=== PATIENT | male | born 1950 | race Caucasian/White ===

== ENCOUNTER → 2017-06-09 | Day surgery (SDC) | payer OTHER ==
[~2017-06-09] MED LIST: ACETAMINOPHEN 325 MG TAB PO ONE; DEXAMETHASONE 4 MG/ML VIAL IVP ONE; FAMOTIDINE 20 MG TAB PO ONE; LIDOCAINE 1% 2 ML INJ ID PRN; LR 1,000 ML IV ONE; ROPIVACAINE 0.2% 80 MG, EPINEPHrine 0.2 MG, KETOROLAC TROMETHAMINE 30 MG in BAG 0 ML IU ONE; TRANEXAMIC ACID 3,000 MG in NS 50 ML IRR ONE; TRANEXAMIC ACID 3,000 MG/50 ML BAG IRR ONE; VANCOMYCIN 1 GM VIAL ONE; ceFAZolin 2 GM/DEXTROSE 100 ML IV ONE
[2017-06-09 09:18] LABS: INR 1.27 (0.83-1.16); PROTIME(PATIENT) 15.9 SEC (12.0-15.0)
--- NOTE | 2017-06-09 09:59 | PDHPUP ---
History & Physical Update H&P update statement: This history and physical update is based on an assessment of the patient which was completed after admission or registration (within 24 hours), but prior to the surgery/procedure. H&P changes: Pt took ASA and Lasix today. INR is 1.27. will cancel for today and reschedule
== END | disposition home or self-care (01) ==
LOC: F3N 07:57 → FSGY 07:57 → UNDOADMIN 07:57 → EDSTATUS 11:15
PROVIDERS: ATTEND Orthopaedic Surgery
DX: M17.11 Unilateral primary osteoarthritis, right knee (principal); Z53.09 Procedure and treatment not carried out because of other contraindication; E11.9 Type 2 diabetes mellitus without complications; I25.2 Old myocardial infarction; G47.33 Obstructive sleep apnea (adult) (pediatric); E78.00 Pure hypercholesterolemia, unspecified; Z68.35 Body mass index [BMI] 35.0-35.9, adult; E66.9 Obesity, unspecified; Z79.01 Long term (current) use of anticoagulants; Z95.1 Presence of aortocoronary bypass graft
CPT/HCPCS: J0171; J1885; J2795; J3370

== ENCOUNTER 2017-08-04 09:49 | Inpatient (IN) | payer OTHER ==
[~2017-08-04 09:49] MED LIST changes: -ACETAMINOPHEN 325 MG TAB PO ONE; -LIDOCAINE 1% 2 ML INJ ID PRN; -LR 1,000 ML IV ONE; -TRANEXAMIC ACID 3,000 MG/50 ML BAG IRR ONE; -VANCOMYCIN 1 GM VIAL ONE; -ceFAZolin 2 GM/DEXTROSE 100 ML IV ONE; +ceFAZolin 2 GM/SWFI 2 GM/20 ML SYR IVP ONE
[2017-08-04] MEDS ORDERED: TRANEXAMIC ACID 3,000 MG/50 ML BAG IRR ONE (11:54)
[2017-08-04] MEDS ORDERED: VANCOMYCIN 1 GM VIAL ONE (11:54)
[2017-08-04] MEDS ORDERED: LIDOCAINE 1% 2 ML INJ ID PRN (12:15)
[2017-08-04] MEDS ORDERED: LR 1,000 ML IV ONE (12:15)
[2017-08-04] MEDS ORDERED: FAMOTIDINE 20 MG TAB ONE (13:02)
[2017-08-04] MEDS ORDERED: DEXAMETHASONE 4 MG/ML VIAL ONE (13:04)
[2017-08-04] MEDS ORDERED: ceFAZolin 2 GM/SWFI 20 ML SYR IVP ONE (13:05)
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
[2017-08-04 13:43] LABS: ANION GAP 14 mEq/L (8-16); CALCIUM 9.3 mg/dL (8.5-10.4); CARBON DIOXIDE 24 mEq/l (22-31); CHLORIDE 104 mEq/L (97-110); CREATININE 1.4 mg/dL (0.7-1.3); GLOMERULAR FILTRATION RATE 51; GLUCOSE 139 mg/dL (70-100); POTASSIUM 3.9 mEq/L (3.5-5.2); SODIUM 142 mEq/L (134-144)
--- NOTE | 2017-08-04 13:48 | PDHPUP ---
History & Physical Update H&P update statement: This history and physical update is based on an assessment of the patient which was completed after admission or registration (within 24 hours), but prior to the surgery/procedure. H&P update: H&P reviewed & patient examined, no change in patient's condition since H&P completed
[2017-08-04] MEDS ORDERED: fentaNYL 100 MCG/2 ML INJ ONE (13:49)
[2017-08-04] MEDS ORDERED: PROPOFOL/EMULSION 500 MG/50 ML BOTTLE IV ONE (13:49)
[2017-08-04] MEDS ORDERED: POLYETHYLENE GLYCOL 3350 17 GM PKT PO PRN (14:21)
[2017-08-04] MEDS ORDERED: METOCLOPRAMIDE 10 MG/2 ML VIAL IVP PRN (14:21)
[2017-08-04] MEDS ORDERED: ONDANSETRON 4 MG/2 ML VIAL IVP PRN ×2 (14:21→15:11)
[2017-08-04] MEDS ORDERED: ONDANSETRON DISINTEGRATING 4 MG TAB PO PRN (14:21)
[2017-08-04] MEDS ORDERED: MAGNESIUM HYDROXIDE 30 ML UDCUP PO PRN (14:21)
[2017-08-04] MEDS ORDERED: DIPHENOXYLATE/ATROPINE LOMOTIL 1 TAB PO PRN (14:21)
[2017-08-04] MEDS ORDERED: LACTULOSE 20 GM/30 ML UDCUP PO PRN (14:21)
[2017-08-04] MEDS ORDERED: PROMETHAZINE HCL 25 MG SUPPR PR PRN (14:21)
[2017-08-04] MEDS ORDERED: TEMAZEPAM 15 MG CAP PO PRN (14:21)
[2017-08-04] MEDS ORDERED: PROMETHAZINE HCL 25 MG/ML INJ IVP PRN (14:21)
[2017-08-04] MEDS ORDERED: BISACODYL 10 MG SUPP PR PRN (14:21)
[2017-08-04] MEDS ORDERED: diphenhydrAMINE 25 MG CAP PO PRN (14:21)
[2017-08-04] MEDS ORDERED: CYCLOBENZAPRINE 10 MG TAB PO PRN (14:21)
[2017-08-04] MEDS ORDERED: epHEDrine SULFATE 10 MG/ML SYR ONE (14:23)
[2017-08-04] MEDS ORDERED: SERTRALINE HCL 100 MG TAB PO PRN (14:25)
[2017-08-04] MEDS ORDERED: ALBUTEROL 200 PUFFS/18 GM MDI IH PRN (14:25)
[2017-08-04] MEDS ORDERED: FUROSEMIDE 40 MG TAB PO PRN (14:25)
[2017-08-04] MEDS ORDERED: NITROGLYCERIN 0.4 MG BTL SL PRN (14:25)
[2017-08-04] MEDS ORDERED: NS 1,000 ML IV SCH (14:30)
[2017-08-04] MEDS ORDERED: ONDANSETRON 4 MG/2 ML VIAL ONE (14:33)
[2017-08-04] MEDS ORDERED: ROPIVACAINE HCL 150 MG/30 ML INJ ONE (14:47)
[2017-08-04] MEDS ORDERED: HYDROCODONE/APAP 5/325 TAB PO PRN (15:11)
[2017-08-04] MEDS ORDERED: NALOXONE HCL 0.4 MG/ML INJ IVP PRN (15:11)
[2017-08-04] MEDS ORDERED: OXYCODONE/APAP 5/325 TAB PO PRN (15:11)
--- NOTE | 2017-08-04 15:37 | POSTOPPROG ---
Post Op Note Date of Operation: 08/04/17 Surgeon: Meek Worthington Rib Stiffener And Heel Dipper: Rebecca Worthington PAc Anesthesiologist: Jaxson Anesthesia: Spinal Pre-op Diagnosis: R knee DJD Post-op Diagnosis: same Indication: pain Procedure: R TKA Findings: DJD knee Inf/Abcess present in the surg proc area at time of surgery?: No EBL: 50-100
--- NOTE | 2017-08-04 15:48 | POSTANESTH ---
Post Anesthetic Evaluation Cardiovascular Status: Normal, Stable, Similar to Pre-Op Cond Respiratory Status: Similar to Pre-op Cond. Level of Consciousness/Mental Status: Can Participate in Eval Pain Control: Adequate, Prn Tx Ordered Nausea/Vomiting Control: Adequate, Prn Tx Ordered Complications Possibly Related to Anesthesia: None Noted
[2017-08-04 15:54] LABS: APTT 28.8 SEC (23.0-38.0); INR 1.19 (0.83-1.16); PROTIME(PATIENT) 15.1 SEC (12.0-15.0)
--- NOTE | 2017-08-04 16:35 | CPEKG ---
Heart Rate: 61 RR Interval: 984 QRSD Interval: 106 QT Interval: 448 QTC Interval: 452 QRS [place]: 79 EKG Severity - ABNORMAL ECG - EKG Impression: ATRIAL FIBRILLATION EKG Impression: LOW VOLTAGE IN FRONTAL LEADS Electronically Signed By: Vu Khan 05-Aug-2017 18:29:18
[2017-08-04] MEDS: WARFARIN SODIUM 5 MG TAB PO SCH (18:02)
[2017-08-04] MEDS: SENNOSIDES/DOCUSATE SODIUM TAB PO SCH (20:47)
[2017-08-04] MEDS: ATORVASTATIN CALCIUM 40 MG TAB PO SCH (20:47)
[2017-08-04] MEDS: ISOSORBIDE MONONITRATE 30 MG TAB.SR PO SCH (20:48)
[2017-08-04] MEDS: GABAPENTIN 300 MG CAP PO SCH (20:48)
[2017-08-04] MEDS: FAMOTIDINE 20 MG TAB PO SCH (20:49)
[2017-08-04] MEDS: BUDESONIDE/FORMOTEROL 80/4.5 60 PUFFS/MDI IH SCH (20:59)
[2017-08-04] MEDS ORDERED: INSULIN GLARGINE 100 UNITS/ML SYRINGE SC SCH (21:00)
[2017-08-04] MEDS: HYDROCODONE/APAP 10/325 TAB PO PRN (21:41)
[2017-08-04] MEDS: ceFAZolin 2 GM/DEXTROSE 100 ML IV SCH (21:42)
[2017-08-04] MEDS ORDERED: D50W 25 GM/50 ML VIAL IVP PRN (21:45)
[2017-08-04] MEDS: INSULIN REGULAR HUMAN 100 UNIT/ML SC SCH (22:16)
[2017-08-04 22:22] LABS: GLUCOSE 381 mg/dL (70-100)
[2017-08-05] MEDS: INSULIN REGULAR HUMAN 100 UNIT/ML SC SCH ×5 (02:15→21:25)
[2017-08-05] MEDS ORDERED: INSULIN LISPRO 100 UNIT/ML SC ONE (04:43)
[2017-08-05] MEDS ORDERED: NS 1,000 ML IV SCH (04:45)
[2017-08-05 05:02] LABS: HEMATOCRIT 36.5 % (40.0-51.0); HEMOGLOBIN 12.3 g/dL (13.7-17.5)
[2017-08-05 05:15] LABS: INR 1.23 (0.83-1.16); PROTIME(PATIENT) 15.5 SEC (12.0-15.0)
[2017-08-05 05:20] LABS: ANION GAP 12 mEq/L (8-16); CALCIUM 8.6 mg/dL (8.5-10.4); CARBON DIOXIDE 22 mEq/l (22-31); CHLORIDE 101 mEq/L (97-110); CREATININE 1.4 mg/dL (0.7-1.3); GLOMERULAR FILTRATION RATE 51; GLUCOSE 323 mg/dL (70-100); POTASSIUM 4.4 mEq/L (3.5-5.2); SODIUM 135 mEq/L (134-144)
[2017-08-05] MEDS: ceFAZolin 2 GM/DEXTROSE 100 ML IV SCH (05:29)
[2017-08-05] MEDS ORDERED: NON-FORMULARY NEW DRUG (Metformin Hcl [Glucophage 1000 Mg] 1,000 MG) PO SCH (08:00)
[2017-08-05] MEDS ORDERED: metFORMIN HCL 500 MG TAB PO SCH (08:00)
[2017-08-05] MEDS: SENNOSIDES/DOCUSATE SODIUM TAB PO SCH ×2 (08:34→21:26)
[2017-08-05] MEDS: FUROSEMIDE 40 MG TAB PO SCH (08:35)
[2017-08-05] MEDS: LOSARTAN POTASSIUM 50 MG TAB PO SCH (08:35)
[2017-08-05] MEDS: METOPROLOL TARTRATE 100 MG TAB PO SCH ×2 (08:37→21:33)
[2017-08-05] MEDS: FAMOTIDINE 20 MG TAB PO SCH (08:38)
[2017-08-05] MEDS: ENOXAPARIN 40 MG/0.4 ML SYR SC SCH (08:39)
[2017-08-05] MEDS ORDERED: INSULIN GLARGINE 100 UNITS/ML SYRINGE SC ONE (09:00)
--- NOTE | 2017-08-05 09:24 | PDHOSCONS ---
Hospitalist Consult Hospitalist Consult: Hospitalist Consultation Request by Dr. Worthington Reason for consultation - medical management, diabetes. Source - patient provides history and appears reliable. EMR reviewed. CC - hyperglycemia HPI - Pleasant 66 yo M with pmhx significant for IDDM II with neuropathy, afib on coumadin, CAD s/p CABG, HTN, gout, OA, COPD, LEAH not compliant with CPAP, CKD stage 2 admitted s/p right TKA. Consultation for medical management by problem. 1. DM II - pateint reports BS generally controlled but cannot describe baseline AM BS. He also reports A1c reported to be "okay." complicated with neuropathy and CKD. Patient tries to adhere to ADA diet as possible. patient normally takes 30 units lantus at HS, metformin. Since arrival to medical floor postoperatively patient blood sugars have escalated to above 300s despite 10unit dosing humalog. 2. HTN - Pt reports controlled BPs. no chest pain/SOB/STEPHENSON. 3. atrial fib - patient reports rate controlled without issues. on coumadin for anticoagulation which was transitioned to SC lovenox prior to surgery. 4. LEAH - patient reports he was prescribed cpap but has not been compliant in 2 years. he does use the oxygen and reports this helps his symptoms. patient is willing to restart use. ROS - patient reports pain is adequately controlled. denies any fevers/chills/ nausea/vomiting/STEPHENSON. patient with chronic SOB and reports this is at baseline. Patient notes neuropathy to both feet. Otherwise remainder ROS negative except as noted above. Allergies Codeine. Medications reviewed see Home medication list. PMHx - atrial fibrillation on coumadin. DM II with neuropathy and CKD 2. CAD s/ p CaBG with history of DE 2011. HTN. Gout. OA. COPD. ED. AAA. LEAH on cpap. PSHx - CABG, cardiac cath. right hand fusion. right TKA FHx - CAD, DM II, OA. mother RA. SHx - . lives with . quit smoking 2006. occasional etoh. prn cannaboids. COR - FULL EXAM - Selected Entries 08/05/17 08/05/17 04:00 07:14 Heart Rate 75 71 Respiratory 16 16 Rate O2 Sat (%) 96 93 Temperature (C) 36.9 C 36.6 C Blood Pressure 109/72 109/71 Mean Arterial 84 83 Pressure (MAP) O2 (L/minute) 2 Activity During At Rest At Rest Vital Signs O2 Delivery Simple Mask Room Air Mode Blood Pressure Right Right Source Upper Upper Arm Arm Temperature Oral Oral Source Heart Rate Heart Rate/ Heart Rate/ Source Monitor Monitor General - NAD. pleasant obese adult male lays quietly in bed in good spirits. skin - intact. no evidence of rashes/sores. ENT - mucous membranes dry. no nasal discharge. no oropharyngeal erythema/ exudates. EYES - PERRL bilaterally and symmetric. no scleral icterus/conjunctival injection. EOMI. CV - RRR. no m/r/g. slightly distant heart sounds 2/2 body habitus. Resp - decreased inspiratory effort. no wheezing/rales/rhonchi. GI - obese abdomen. + BS. soft. NTTP. - no suprapubic ttp. no silverio. MSK - limited 2/2 post op status but moves all distal extremities and upper extremities. right leg bandaged and with cooling cover. no oozing/bleeding. Neuro - CN II-XII intact/symmetric. sensation intact. nonfocal. Psych - patient in good spirits and cooperative. thought process/content/ questions appropriate. Laboratory Tests 08/04/17 08/04/17 08/04/17 12:50 12:50 15:45 Hgb Hct PT 15.1 H INR 1.19 H APTT 28.8 Sodium 142 Potassium 3.9 Chloride 104 Carbon Dioxide 24 Anion Gap 14 BUN 29 H Creatinine 1.4 H Estimated GFR 51 Glucose 139 H POC Glucose 168 H Hemoglobin A1c Estim Average Glucose Calcium 9.3 08/04/17 08/04/17 08/04/17 17:52 21:04 21:55 Hgb Hct PT INR APTT Sodium Potassium Chloride Carbon Dioxide Anion Gap BUN Creatinine Estimated GFR Glucose 381 H POC Glucose 172 H > 350 H Hemoglobin A1c Estim Average Glucose Calcium 08/04/17 08/05/17 08/05/17 23:37 01:22 04:21 Hgb 12.3 L Hct 36.5 L PT INR APTT Sodium Potassium Chloride Carbon Dioxide Anion Gap BUN Creatinine Estimated GFR Glucose POC Glucose > 350 H > 350 H Hemoglobin A1c Estim Average Glucose Calcium 08/05/17 08/05/17 08/05/17 04:21 04:21 04:21 Hgb Hct PT 15.5 H INR 1.23 H APTT Sodium 135 Potassium 4.4 Chloride 101 Carbon Dioxide 22 Anion Gap 12 BUN 34 H Creatinine 1.4 H Estimated GFR 51 Glucose 323 H POC Glucose > 350 H Hemoglobin A1c Estim Average Glucose Calcium 8.6 08/05/17 04:21 Hgb Hct PT INR APTT Sodium Potassium Chloride Carbon Dioxide Anion Gap BUN Creatinine Estimated GFR Glucose POC Glucose Hemoglobin A1c Pending Estim Average Glucose Pending Calcium Right Knee, Two Views History: Postop alignment check. Findings: A right knee TKA is present and is in excellent postoperative alignment. There is dense atherosclerotic change is an. Impression: Excellent postoperative alignment. pre-operative ekg - afib. v rate 60s. no acute st changes. A/P: Pleasant 66 yo M POD #1 s/p Right TKA with Dr. Worthington consulted to assist with medical management 1. DM II uncontrolled - BS have remained elevated despite several doses of 10 units of humalog and patient normal dose 30units Lantus. Will give additional IVF hydration and prn dosing lispro with ISS. continue patient lantus at hs. will add AM dosing 10 units. Likely reactive postoperatively so will monitor dosing insulin cautiously to try to avoid drastic decline in BS/hypoglycemia in patient with history of ckd and decreased insulin clearance. ADA diet. resume metformin. 2. benign essential HTN - BPs slightly low normal but pt asymptomatic. IVF for 1 liter ordered but agree with resuming patient home medications including amlodipine, metoprolol, losartan, hold lasix for now. patient appears a little dry. patient admitted to taking additional lasix pre-operatively. encourage PO hydration as well. monitor fluid status. 3. atrial fib - rate controlled. continue metoprolol. continue coumadin dosing when okay with ortho. 4. CAD - continue ARB, BB, statin, imdur. ASA when okay with ortho postoperatively. 5. HLD - statin 6. acute on chronic pain - okay to resume home gabpentin, flexeril. acute post op pain management as per primary team. 7. gout - continue allopurinol. 8. COPD - continue albuterol prn. no evidence of exacerbation 9. LEAH - patient reports noncompliance with cpap in 2 years. encouraged patient to follow up with PCP and consider titration study. at this time patient prefers to use oxymask at HS. 10. obesity BMI 36.4 - mobilize, dietary modifications recommended. FEN - IVF. electrolyte replacement prn. ADA/cardiac diet. PPX - SCDs/teds. anticoagulation to resume when okay with ortho. COR - FULL. MDPOA. Thank You for this consultation. we will continue to follow along with you.
[2017-08-05] MEDS: amLODIPine BESYLATE 5 MG TAB PO SCH (09:35)
[2017-08-05 09:52] LABS: HEMOGLOBIN A1C 8.4 % (4.0-6.0)
[2017-08-05] MEDS: BUDESONIDE/FORMOTEROL 80/4.5 60 PUFFS/MDI IH SCH ×2 (10:43→23:29)
--- NOTE | 2017-08-05 12:42 | HOSPPROG ---
Hospitalist Progress Note Assessment/Plan: Patient is a 66 yo male who s/p a right TKA. Hospitalists asked to manage Diabetes, and chronic conditions. *DM 2 AIC is 8.4, average glucose is 194 Lantus dose is at 30 units, but glucoses are still high increase Lantus to 35 units, cont sliding scale *s/p TKA with Dr Worthington doing well with this pain well managed *HTN bp stable *atrial fib Coumadin resumed, rate controlled with Metoprolol *LEAH not compliant w CPAP will review w patient the importance of using this *renal insufficiency will hold Metformin patient on high dose of Lasix and ARB recheck labs in a.m. unclear of his baseline *CAD ARB,BB, statin, resume asa when ok with surgical team *Gout allopurinol *Obesity/BMI is 36 *DVT Prophylaxis: LMWH Subjective: Bahman is feeling well/ pain is well managed. Objective: Vital Signs Temp Pulse Resp BP Pulse Ox 37.1 C 56 L 16 103/66 94 08/05/17 11:32 08/05/17 11:32 08/05/17 11:32 08/05/17 11:32 08/05/17 11:32 Laboratory Results 08/05/17 04:21 08/05/17 04:21 08/04/17 08/05/17 08/06/17 05:59 05:59 05:59 Intake Total 2315 Output Total 750 Balance 1565 PT 15.5 SEC (12.0-15.0) H 08/05/17 04:21 INR 1.23 (0.83-1.16) H 08/05/17 04:21 - Physical Exam Constitutional: no apparent distress, appears nourished, not in pain, obese Eyes: PERRL Ears, Nose, Mouth, Throat: hearing normal Cardiovascular: no murmur, rub, or gallop Respiratory: no respiratory distress Gastrointestinal: normoactive bowel sounds Skin: warm Neurologic: AAOx3 Psychiatric: interacting appropriately, not anxious ICD10 Worksheet Patient Problems: Problems Problem Status Onset Primary localized osteoarthritis of right knee Acute
--- NOTE | 2017-08-05 13:57 | ASMTCMCOM ---
CM Note CM Note Notes: PT/OT clear pt for home, no HHC RN need indicated by RN. Anticipate pt will d/c when medically stable, no CM d/c needs identified at this time. CM available for changes/needs. Date Signed: 08/05/2017 01:57 PM Electronically Signed By:NICOLE Lee
--- NOTE | 2017-08-05 14:12 | GOP ---
[f rep st] OPERATIVE REPORT DATE OF OPERATION: 08/04/2017 SURGEON: Maia Worthington MD ROUNDER AND BACKER: NAOMI Samuel ANESTHESIA: Spinal. PREOPERATIVE DIAGNOSIS: Right knee osteoarthritis. POSTOPERATIVE DIAGNOSIS: Right knee osteoarthritis. PROCEDURE PERFORMED: Right total knee arthroplasty. FINDINGS/PATHOLOGY: Severe medial and patellofemoral osteoarthritis, preop flexion contracture of 10 degrees. ESTIMATED BLOOD LOSS: 30 cc. INDICATIONS: This is a 66-year-old male with severe and progressive pain and deformity of the right knee unresponsive to conservative care. Risks and benefits of the surgical intervention were explained in detail. DESCRIPTION OF PROCEDURE: The patient was brought to the operative room and placed on the table in the supine position. Spinal anesthesia was induced without difficulty. A pneumatic tourniquet was applied about the right proximal thigh, and the leg was prepped and draped in a sterile fashion. The leg rand was applied. After exsanguination by elevation the tourniquet was inflated to 275 mm of mercury. Incision was made anterior medial from the tibial tuberosity to a point 2 cm proximal to the superior pole of the patella. Medial parapatellar arthrotomy was carried out from the superior pole of the patella and posteriorly in line with the fibers of the Type II VMO. The medial collateral ligament was elevated and the infrapatellar fat pad was resected. The patella was everted and the articular surface was excised. A 38 mm patellar button was placed. The distal femoral guide hole was drilled and the 6- degree alignment yomaira was placed. A 10 mm distal femoral cut was made without difficulty. Attention was turned to the tibia and a standard 9 mm cut based on the lateral tibial condyle was performed. The tibial articular surface was excised without difficulty. Attention was turned back to the femur and a size 5 Triathlon femoral cutting block was positioned. Anterior, posterior, and chamfer cuts were made, followed by the intercondylar box cut. The knee was extended and the remnants of the medial and lateral meniscus were excised. The posterior capsule was injected with ropivacaine, epinephrine and Toradol. A size 6 MIS mini-keel tibial tray was positioned. Trial reduction was then carried out. There was excellent range of motion, alignment, and stability using the 9 mm polyethylene. All trials were then removed. The joint was thoroughly irrigated and carefully dried. Two packages of cement and 2 grams of vancomycin were mixed in the vacuum mixer and placed on the fixation surfaces of all surfaces of the components. The components were implanted and all excess cement was thoroughly removed. The permanent 9 mm polyethylene was placed without difficulty. The tourniquet was deflated and all bleeders were coagulated. The wound was thoroughly irrigated and closed using interrupted sutures of 2-0 Vicryl for the joint capsule. The subcu was closed with 3-0 Vicryl and the skin with 4-0 Monocryl. Dermabond and Steri-Strips were applied followed by a compressive dressing. The patient was then moved from the operating room to the recovery room in good condition, having tolerated the procedure well. /[id number]/MODL MTDD
[2017-08-05] MEDS: WARFARIN SODIUM 5 MG TAB PO SCH (15:51)
--- NOTE | 2017-08-05 16:01 | SOAPPROG ---
BRENT Progress Note Assessment/Plan: Assessment: Bahman is POD 1 s/p R TKA 1) pain management: pain is well controlled on oral pain meds. adductor canal block is still working, pain will worsen 2) VTE ppx: recommend patient resume coumadin. INR today, cont LAUREANO hose and SCD 3) anemia: level expected initially postop 4) d/c planning: placed order for case management to evaluate patient. As patient is on exterminator helper termite coumadin, he may benefit from HH for a short period of time postoperatively. Patient will have to have INR drawn twice a week for 3 weeks postop. Would recommend patient stay another night to manage blood sugars postoperatively. 5) CKD: appears stable. Cr 1.4 today. continue encouraging oral fluid intake 6) Diabetes: appreciate hospitalist's assistance managing comorbidities. Plan: 08/05/17 15:57 Subjective: bahman is doing well, resting comfortably, denies SOB, chest pain and N/v. Objective: Vital Signs Temp Pulse Resp BP Pulse Ox 36.9 C 55 L 16 117/87 H 95 08/05/17 15:33 08/05/17 15:33 08/05/17 15:33 08/05/17 15:33 08/05/17 15:33 Laboratory Results 08/05/17 04:21 08/05/17 04:21 08/04/17 08/05/17 08/06/17 05:59 05:59 05:59 Intake Total 2315 300 Output Total 750 500 Balance 1565 -200 PT 15.5 SEC (12.0-15.0) H 08/05/17 04:21 INR 1.23 (0.83-1.16) H 08/05/17 04:21 RLE: incision dressing is clean and dry, NVI, +pf/df ICD10 Worksheet Patient Problems: Problems Problem Status Onset Primary localized osteoarthritis of right knee Acute
[2017-08-05] MEDS ORDERED: INSULIN GLARGINE 100 UNITS/ML SYRINGE SC SCH (16:27)
[2017-08-05] MEDS: GABAPENTIN 300 MG CAP PO SCH (21:26)
[2017-08-05] MEDS: ATORVASTATIN CALCIUM 40 MG TAB PO SCH (21:26)
[2017-08-05] MEDS: ISOSORBIDE MONONITRATE 30 MG TAB.SR PO SCH (21:31)
[2017-08-06 04:51] LABS: HEMATOCRIT 33.4 % (40.0-51.0); HEMOGLOBIN 11.4 g/dL (13.7-17.5)
[2017-08-06 05:18] LABS: INR 1.21 (0.83-1.16); PROTIME(PATIENT) 15.3 SEC (12.0-15.0)
[2017-08-06 05:32] LABS: ANION GAP 10 mEq/L (8-16); CALCIUM 8.5 mg/dL (8.5-10.4); CARBON DIOXIDE 25 mEq/l (22-31); CHLORIDE 105 mEq/L (97-110); CREATININE 1.2 mg/dL (0.7-1.3); GLOMERULAR FILTRATION RATE > 60; GLUCOSE 93 mg/dL (70-100); POTASSIUM 3.9 mEq/L (3.5-5.2); SODIUM 140 mEq/L (134-144)
[2017-08-06] MEDS ORDERED: FAMOTIDINE 20 MG TAB PO SCH (09:00)
[2017-08-06] MEDS: BUDESONIDE/FORMOTEROL 80/4.5 60 PUFFS/MDI IH SCH (09:19)
[2017-08-06] MEDS: ENOXAPARIN 40 MG/0.4 ML SYR SC SCH (09:20)
[2017-08-06] MEDS: amLODIPine BESYLATE 5 MG TAB PO SCH (09:20)
[2017-08-06] MEDS: INSULIN REGULAR HUMAN 100 UNIT/ML SC SCH ×2 (09:21→13:24)
[2017-08-06] MEDS: LOSARTAN POTASSIUM 50 MG TAB PO SCH (09:22)
[2017-08-06] MEDS: SENNOSIDES/DOCUSATE SODIUM TAB PO SCH (09:23)
[2017-08-06] MEDS ORDERED: METOPROLOL TARTRATE 100 MG TAB PO SCH (10:32)
--- NOTE | 2017-08-06 10:32 | HOSPPROG ---
Hospitalist Progress Note Assessment/Plan: Patient is a 66 yo male who s/p a right TKA. Hospitalists asked to manage Diabetes, and chronic conditions. *DM 2 AIC is 8.4, average glucose is 194 Lantus dose is at 30 units, increase Lantus to 35 units, cont sliding scale glucoses improved *bradycardia occurred while asleep, in addition on BB cut beta jorgito in half *s/p TKA with Dr Worthington doing well with this pain well managed *HTN bp stable *chronic atrial fib Coumadin resumed, rate controlled with Metoprolol had some episodes of bradycardia INR subtherapeutic *LEAH not compliant w CPAP *renal insufficiency/creat 1.2/ improved patient on high dose of Lasix and ARB *CAD ARB,BB, statin, resume asa when ok with surgical team hx of CABG x 7 in 2008 *Gout allopurinol *Obesity/BMI is 36 *DVT Prophylaxis: LMWH *Plan: spoke with patient's buck swamper, Dr Heard at the [facility]. He is in agreement to cut beta jorgito in half. If he develops any chest pain, can resume full dose. Patient has a significant cardiac hx and will need f/u with him. Reviewed w Bahman and his , the importance of weight loss, using CPAP at night. He will be fine for dc later today. Subjective: Bahman is feeling well except didn't sleep well in the hospital. Objective: Vital Signs Temp Pulse Resp BP Pulse Ox 36.9 C 62 15 127/88 H 92 08/06/17 08:00 08/06/17 08:00 08/06/17 08:00 08/06/17 09:22 08/06/17 08:00 Laboratory Results 08/06/17 04:23 08/06/17 04:23 08/05/17 08/06/17 08/07/17 05:59 05:59 05:59 Intake Total 2315 520 Output Total 750 1325 Balance 1565 -805 PT 15.3 SEC (12.0-15.0) H 08/06/17 04:23 INR 1.21 (0.83-1.16) H 08/06/17 04:23 - Physical Exam Constitutional: no apparent distress, not in pain, chronically ill appearing Eyes: PERRL Ears, Nose, Mouth, Throat: hearing normal Cardiovascular: regular rate and rhythym Respiratory: no respiratory distress, reduced air movement Gastrointestinal: normoactive bowel sounds Skin: warm Musculoskeletal: generalized weakness Neurologic: AAOx3 Psychiatric: interacting appropriately ICD10 Worksheet Patient Problems: Problems Problem Status Onset Primary localized osteoarthritis of right knee Acute
[2017-08-06] MEDS: FUROSEMIDE 40 MG TAB PO SCH (11:28)
[2017-08-06 11:45] VITALS: BP 116/77; PULSE 60; RESP 18; TEMP 98.7; O2SAT 89
[2017-08-06] MEDS: HYDROCODONE/APAP 10/325 TAB PO PRN (11:47)
--- NOTE | 2017-08-06 12:02 | SOAPPROG ---
SOAP Progress Note Assessment/Plan: Assessment: Bahman is POD 2 s/p R TKA 1) pain management: pain is well controlled on oral pain meds. 2) VTE ppx: recommend patient resume coumadin. INR today 1.2, cont LAUREANO hose and SCD 3) anemia: level expected initially postop 4) d/c planning: d/c to home today once hospitalist agrees. Patient will have to have INR drawn twice a week for 3 weeks postop. 5) CKD: appears slightly improved. Cr 1.2 today. continue encouraging oral fluid intake 6) Diabetes: appreciate hospitalist's assistance managing comorbidities. 7) bradycardia: hospitalist spoke with patient's drafter seismograph, agreed to cut metropolol dose in half. Plan: 08/05/17 15:57 08/06/17 11:59 Subjective: Bahman is doing ok today, bradycardia overnight. mild pain. denies chest pain Objective: Vital Signs Temp Pulse Resp BP Pulse Ox 37.1 C 60 18 116/77 89 L 08/06/17 11:43 08/06/17 11:43 08/06/17 11:43 08/06/17 11:43 08/06/17 11:43 Laboratory Results 08/06/17 04:23 08/06/17 04:23 08/05/17 08/06/17 08/07/17 05:59 05:59 05:59 Intake Total 2315 520 Output Total 750 1325 Balance 1565 -805 PT 15.3 SEC (12.0-15.0) H 08/06/17 04:23 INR 1.21 (0.83-1.16) H 08/06/17 04:23 RLE; incision dressing is clean and dry, NVI, +pf/df ICD10 Worksheet Patient Problems: Problems Problem Status Onset Primary localized osteoarthritis of right knee Acute
--- NOTE | 2017-08-06 14:01 | ASDISCHSUM ---
Discharge Information Plan Status:Home with No Needs Medically Cleared to Leave: Discharge Date:08/06/2017 01:15 PM CM D/C Disposition:Home, Routine, Self-Care ADT D/C Disposition:Home, Routine, Self-Care Projected Discharge Date:08/06/2017 01:15 PM Transportation at D/C: Discharge Delay Reason: Follow-Up Date:08/06/2017 01:15 PM Discharge Slot: Final Diagnosis: Placement Information Patient Contact Information Contact Name:OLIVER Relationship:Friend Address:[phone] Work Phone: City:[place] [facility] Phone: [facility]/Zip Code:[place] [address] Email: Financial Information Financial Class:HMO and PPO Plans Primary Plan Desc:[employer] Primary Plan Number:[id number] Secondary Plan Desc: Secondary Plan Number: Assessment Information [facility] CM Progress Note CM Note CM Note Notes: PT/OT clear pt for home, no HHC RN need indicated by RN. Anticipate pt will d/c when medically stable, no CM d/c needs identified at this time. CM available for changes/needs. Date Signed: 08/05/2017 01:57 PM Electronically Signed By:NICOLE Lee Intervention Information
--- NOTE | 2017-08-06 18:49 | GDS ---
[f rep st] DISCHARGE SUMMARY ADMISSION DIAGNOSIS: Right knee osteoarthritis. DISCHARGE DIAGNOSIS: Right knee osteoarthritis. PROCEDURE: Right total knee arthroplasty. VTE PROPHYLAXIS: Recommend patient resume Coumadin. BRIEF DESCRIPTION OF HOSPITAL STAY: Patient was admitted for an elective joint arthroplasty. The pa tient tolerated the procedure well and has passed physical therapy. The patient was given appropriat e antibiotic prophylaxis and venous thromboembolism prophylaxis. The patient's pain was well control led on oral pain medication, patient was holding down food, and had urinated. Decision was made to d ischarge the patient. The patient was given post-operative prescriptions pre-operatively. PLAN: Please follow up as scheduled in Dr. Worthington's office at [facility] in 3 weeks. /[id number]/MODL
== END 2017-08-06 13:15 | disposition home or self-care (01) | DRG 470 ==
LOC: F3N 12:01
PROVIDERS: ADMIT Orthopaedic Surgery; ATTEND Orthopaedic Surgery
PROC: 0SRC0J9 Replacement of Right Knee Joint with Synthetic Substitute, Cemented, Open Approach (ICD-10-PCS; principal; 2017-08-04 15:15)
DX: M17.11 Unilateral primary osteoarthritis, right knee (principal); E11.65 Type 2 diabetes mellitus with hyperglycemia; E11.610 Type 2 diabetes mellitus with diabetic neuropathic arthropathy; E11.21 Type 2 diabetes mellitus with diabetic nephropathy; N18.2 Chronic kidney disease, stage 2 (mild); I12.9 Hypertensive chronic kidney disease with stage 1 through stage 4 chronic kidney disease, or unspecified chronic kidney disease; I48.91 Unspecified atrial fibrillation; G47.33 Obstructive sleep apnea (adult) (pediatric); J44.9 Chronic obstructive pulmonary disease, unspecified; Z95.1 Presence of aortocoronary bypass graft; E66.9 Obesity, unspecified; Z79.84 Long term (current) use of oral hypoglycemic drugs; Z68.34 Body mass index [BMI] 34.0-34.9, adult
CPT/HCPCS: 82947-QW; 97161-GP; 97165-GO; 97535-GO; C1713; J0171; J0690; J1100; J1650; J1815; J1885; J2405; J2704; J2795; J3010; J3370